=== PATIENT | male | born 1955 | race Caucasian/White ===

== ENCOUNTER 2018-07-14 11:32 | Day surgery (SDC) | payer OTHER, SELFPAY ==
--- NOTE | 2018-07-14 | PATH_ITS ---
[facility] Accession Number: [id number] . 01 Material submitted: . rectum - RECTAL STIPEL . 02 Diagnosis: Rectum, Biopsy: Colorectal mucosa with no diagnostic abnormality. Negative for active or microscopic colitis. Negative for granulomata, dysplasia or malignancy. [facility]/07/15/2018 . 02 Electronically signed: . Masoud Cabral MD, PhD, Pathologist NPI- [id number] . 01 Gross description: . RECTAL STIPEL: Received in formalin are 3 fragment(s) of leslie, soft tissue measuring 0.3 x 0.3 x 0.2 cm to 0.4 x 0.3 x 0.2 cm which is entirely submitted and submitted entirely in 1 cassette(s) /DMC /DM . 02 Pathologist provided ICD-10: Z12.11 . 02 CPT . 031417 Performed at: 01 [facility] [address] [facility], [place], [place] [id number] MD Saud Velez MD Phone: [phone] Performed at: 02 [facility] [address] [place], [place] [id number] MD Tricia Martinez MD Phone: [phone]
[2018-07-14 11:59] VITALS: BP 137/90; PULSE 64; RESP 16; TEMP 36.3; O2SAT 98; BMI 31.2
[2018-07-14] MEDS: SODIUM CHLORIDE 0.9% 1,000 ML 200 ML IV (12:17)
--- NOTE | 2018-07-14 12:47 | PM.HP.1 ---
History of Present Illness Date Patient Seen: 07/14/18 Time Patient Seen: 12:47 Chief complaint: [id number] SCREENING COLONOSCOPY Narrative: 62 yo man presents for screening colonoscopy - last 10yrs ago. hx of colon polyps but told to return in 10yrs. unclear if hyperplastic or not. Feeling well - no intestinal complaints tolerated prep no family hx of colonrectal cancer or IBD Patient History Medical History (Updated 07/14/18 @ 12:49 by Eldon Dodson MD) Obesity (Acute) Surgical History (Updated 07/14/18 @ 12:50 by Eldon Dodson MD) Bariatric surgery status (Acute) History of cholecystectomy (Acute) Social History household members: spouse Family & Social History Social History: household members spouse Meds Home Medications Medication Instructions Recorded Confirmed Type loratadine 10 mg PO DAILY 07/14/18 07/14/18 History naproxen 250 mg PO DAILY 07/14/18 07/14/18 History Allergies Allergy/AdvReac Type Severity Reaction Status Date / Time grass pollen Allergy Intermediate Nasal Verified 07/14/18 11:56 Discharge tree and shrub pollen Allergy Intermediate Nasal Verified 07/14/18 11:56 Discharge Review of Systems Constitutional Constitutional: Denies fever(s) Eyes Eyes: Denies bulging eyes ENT Ears, Nose, Mouth, and Throat: No lip swelling Cardiovascular Cardiovascular: Denies generalize swelling Respiratory Respiratory: Denies stridor Gastrointestinal Gastrointestinal: Denies coffee ground emesis Musculoskeletal Musculoskeletal: Denies loss of height Integumentary/Breasts Skin/Breast: Denies wounds Neurologic Neurologic: Denies abnormal speech and Denies confusion Psychiatric Psychiatric: Denies confusion Endocrine Endocrine: Denies deepening of the voice Hematologic/Lymphatic Hematologic/Lymphatic: Denies lymphadenopathy Allergic/Immunologic Allergic/Immunologic: Denies lip swelling Exam Vital Signs (past 8 hours): - 07/14/18 11:59 Temperature 97.3 F L Pulse Rate 64 Respiratory Rate 16 Blood Pressure 137/90 Pulse Oximetry 98 Oxygen Delivery Method Room Air Const General: cooperative and healthy appearing Orientation: alert HENMT Head: normal to inspection Nose: nares normal Mouth: oral mucosae normal and lip normal Eyes Eyelids: eyelids normal Conjunctivae: conjunctivae normal Sclera: sclerae normal Neck Neck: supple and other (No thyromegally) Chest Chest: other (LCTAB , regular respiratory effort) Cardio Rhythm: regular rhythm Heart Sounds: S1 normal, S2 normal, no gallops, no murmurs and no rubs GI Other: abdomen soft nontender non distended Skin General: no rashes or lesions noted Neuro General: alert and awake Psych Appearance: grossly normal Affect: normal affect Assessment & Plan Assessment & Plan narrative: 62 yo man presents for screening colonoscopy Risks including , perforation, hypoxia, missed lesion all discussed ready to proceed all questions answered
[2018-07-14] MEDS: MIDAZOLAM 5 MG/5 ML VIAL IV (13:30)
[2018-07-14] MEDS: fentaNYL 250 MCG/5 ML INJ IV (13:31)
--- NOTE | 2018-07-14 13:43 | PM.OP.ENDO ---
Operative Date/Time/Diagnoses Date of procedure: 07/14/18 Time of procedure: 13:43 Pre-op diagnosis: Screening colonoscopy Post-op diagnosis: same Procedure & Clinicians Study performed: Screening complete colonoscopy Same procedure as scheduled: Yes Indications: 62-year-old man with history of prior colonoscopy which had questionable polyps presents for screening colonoscopy. Last 10 years ago Surgeon: Eldon Dodson Procedure Notes SCOAP/Timeout: Completed Procedure in detail: Patient was brought to the endoscopy suite. Time-out was completed. He was sedated with fentanyl and midazolam for a total procedure amount of 4 mg midazolam and 125 micro g of fentanyl. A digital rectal exam was performed there are no masses or polyps identified by palpation. The prostate was enlarged but soft. 160 cm colonoscope was advanced through the rectum the sigmoid rectal junction and through the colon until the cecum was reached. The appendiceal orifice was identified as was the ileocecal valve. The scope was then slowly withdrawn inspecting the mucosal wall. No polypoid lesions were identified over scope withdrawal time of 11 minutes. Prep was adequate. The scope was retroflexed at the level of the distal rectum There was a faint stippling pattern noted on the mucosa throughout the colon and rectum including the cecum. As a consequence of route sales representative area of the rectum was biopsies and sent to pathology Scope withdrawal time: 11 Sedation minutes: 29 Findings: other findings (faint stippling of the colonic mucosa) Specimen(s): other (rectal biopsy) Complications: none Impression: 1) enlarged prostate 2) faint stippling pattern of the mucosa wall of the colon and rectum -the route sales representative biopsy pending Recommendations: Colonscopy in 10 years Plan for aftercare: As needed pending biopsy results Follow up: as needed Disposition: PACU
[2018-07-14 13:46] VITALS: BP 99/65; PULSE 56; RESP 18; TEMP 36.2; O2SAT 99
--- NOTE | 2018-07-14 13:49 | P.OP.ENDO_ITS ---
Operative Date/Time/Diagnoses Date of procedure: 07/14/18 Time of procedure: 13:43 Pre-op diagnosis: Screening colonoscopy Post-op diagnosis: same Procedure & Clinicians Study performed: Screening complete colonoscopy Same procedure as scheduled: Yes Indications: 62-year-old man with history of prior colonoscopy which had questionable polyps presents for screening colonoscopy. Last 10 years ago Surgeon: Eldon Dodson Procedure Notes SCOAP/Timeout: Completed Procedure in detail: Patient was brought to the endoscopy suite. Time-out was completed. He was sedated with fentanyl and midazolam for a total procedure amount of 4 mg midazolam and 125 micro g of fentanyl. A digital rectal exam was performed there are no masses or polyps identified by palpation. The prostate was enlarged but soft. 160 cm colonoscope was advanced through the rectum the sigmoid rectal junction and through the colon until the cecum was reached. The appendiceal orifice was identified as was the ileocecal valve. The scope was then slowly withdrawn inspecting the mucosal wall. No polypoid lesions were identified over scope withdrawal time of 11 minutes. Prep was adequate. The scope was retroflexed at the level of the distal rectum There was a faint stippling pattern noted on the mucosa throughout the colon and rectum including the cecum. As a consequence of premium service representative area of the rectum was biopsies and sent to pathology Scope withdrawal time: 11 Sedation minutes: 29 Findings: other findings (faint stippling of the colonic mucosa) Specimen(s): other (rectal biopsy) Complications: none Impression: 1) enlarged prostate 2) faint stippling pattern of the mucosa wall of the colon and rectum -the premium service representative biopsy pending Recommendations: Colonscopy in 10 years Plan for aftercare: As needed pending biopsy results Follow up: as needed Disposition: PACU
[2018-07-14 13:51] VITALS: BP 97/69; PULSE 57; RESP 18; TEMP 36.3; O2SAT 57
[2018-07-14 13:57] VITALS: BP 97/58; PULSE 59; RESP 15; TEMP 36.4; O2SAT 97
[2018-07-14 14:08] VITALS: BP 100/67; PULSE 62; RESP 15; TEMP 36.2; O2SAT 95
== END 2018-07-14 14:15 | disposition home or self-care (01) ==
PROVIDERS: Family Provider Family Medicine; PCP Family Medicine; Visit Provider Surgery
PROC: 0DJD8ZZ Inspection of Lower Intestinal Tract, Via Natural or Artificial Opening Endoscopic (ICD-10-PCS; CPT 45378; principal; 2018-07-14 13:00)
DX: Z86.010 Personal history of colon polyps (principal); E66.9 Obesity, unspecified
CPT/HCPCS: 45380; 99152; 99153; J2250; J3010

== ENCOUNTER → 2019-07-15 12:10 | Outpatient (CLI) | payer MEDICARE, SELFPAY ==
--- NOTE | 2019-07-15 | DI.MRI.S_ITS ---
PROCEDURE: MR ANKLE RT WO CON INDICATIONS: Right ankle pain TECHNIQUE: Noncontrast sagittal T1 spin echo and T2 fast spin echo with fat saturation, axial proton density fast spin echo and T2 fast spin echo with fat saturation, coronal T1 spin echo and T2 fast spin echo with fat saturation through the ankle/hindfoot. COMPARISON: None. FINDINGS: Image quality: Excellent. Bones and joints: Osteophytic changes are noted in the subtalar joint, talonavicular joint and calcaneocuboid joint with joint space narrowing, subchondral sclerosis and cyst formation. Edema is noted in superior portion of calcaneus and mid to posterior portion of the talus adjacent to subtalar joint. No discrete fracture line is seen. Finding likely represents changes secondary to osteoarthritis versus mild contusion.. No hindfoot coalitions. No osteochondral injuries of the talar dome. No pathologic joint effusions. Medial structures: The posterior tibialis tendon and flexor digitorum longus tendon are grossly intact. Moderate fluid distention of the flexor hallucis longus tendon is seen at the level of the distal tibial plafond/talar dome, suggestive of focal tenosynovitis. The posterior tibial neurovascular bundle appears normal within the tarsal tunnel, without extrinsic mass effect. The deep layer (anterior and posterior tibiotalar ligaments) and superficial layer (tibionavicular, tibiospring, and tibiocalcaneal ligaments) of the deltoid ligament appear normal. The spring ligament components (superomedial calcaneonavicular, medioplantar oblique calcaneonavicular, and inferoplantar longitudinal ligaments) are intact. Lateral structures: The anterior talofibular, calcaneofibular, and posterior talofibular ligaments appear thickened and is suggestive of ligament sprain. More superiorly, the anterior and posterior tibiofibular ligaments appear intact, as is the intermalleolar ligament. The tibiofibular syndesmosis is normal in width at 2 mm or less. The peroneus longus and brevis tendons appear thickened with small amount of fluid distending tendon sheaths at the level of lateral malleolus suggestive of tendinosis and low-grade partial-thickness tear. Adjacent bony peroneal tubercle and retrotrochlear prominence are normal in size. The sinus tarsi demonstrates normal fatty signal, without edema, fibrosis, or cyst formation. Visualized sinus tarsi components (cervical ligament, interosseous talocalcaneal ligament, roots of the inferior extensor retinaculum) appear normal. The calcaneonavicular and calcaneocuboid components of the bifurcate ligament appear intact. The dorsal calcaneocuboid ligament appears intact. Anterior structures: The tibialis anterior, extensor hallucis longus, and extensor digitorum longus tendons appear intact. The dorsal talonavicular ligament appears intact. Posterior and plantar structures: Achilles tendon is intact. Medial and lateral bands of the plantar fascia are of normal thickness. No abductor digiti quinti muscle atrophy to suggest Jensen neuropathy. IMPRESSION: 1. Moderate subtalar joint osteoarthritis with significant edema involving superior portion of calcaneus and mid to posterior portion of talus adjacent to subtalar joint. No fracture or dislocation. No suspicious intraosseous lesion. Mild to moderate osteophytic changes also noted in hindfoot joints. 2. Suggestion of tenosynovitis involving the flexor hallucis longus tendon at the level of tibiotalar joint extending to the level of the subtalar joint. 3. Moderate grade tendinosis and partial-thickness tear involving the peroneus tendons at the level of lateral malleolus. 4. Sprain of anterior and posterior talofibular ligaments. No full-thickness ankle ligament rupture. Dictated by: Augustus Gutierrez M.D. on 07/15/2019 at 15:11 Approved by: Augustus Gutierrez M.D. on 07/15/2019 at 15:26
== END ==
PROVIDERS: Family Provider Family Medicine; PCP Family Medicine; Referring Provider Orthopaedic Surgery Foot and Ankle Surgery; Visit Provider Orthopaedic Surgery Foot and Ankle Surgery
DX: M25.571 Pain in right ankle and joints of right foot (principal); M19.071 Primary osteoarthritis, right ankle and foot; S96.811A Strain of other specified muscles and tendons at ankle and foot level, right foot, initial encounter; S93.491A Sprain of other ligament of right ankle, initial encounter
CPT/HCPCS: 73721

== ENCOUNTER → 2019-08-18 13:45 | Outpatient (CLI) | payer MEDICARE, SELFPAY ==
[2019-08-19 20:03] LABS: COVID19 Sendout Not Detected (Not Detect)
== END ==
PROVIDERS: Family Provider Family Medicine; PCP Family Medicine; Visit Provider Physician Assistant
DX: Z01.812 Encounter for preprocedural laboratory examination (principal)
CPT/HCPCS: 87635

== ENCOUNTER 2019-08-20 10:41 | Day surgery (SDC) | payer MEDICARE, SELFPAY ==
[2019-08-16 12:48] VITALS: BMI 31.8
[2019-08-20] VITALS (8 sets, daily range): BP systolic 123–151; BP diastolic 78–89; PULSE 71–84; RESP 16–20; TEMP 36.8–37.3; O2SAT 95–98; BMI 31.8
[2019-08-20] MEDS: LACTATED RINGERS 1,000 ML 42 ML IV (11:45)
--- NOTE | 2019-08-20 12:25 | SUR.PREOP ---
Pt's finger red, swollen and painful. Shown to PACO Hector and Dr. Hutchinson.
--- NOTE | 2019-08-20 12:51 | SUR.OPER ---
Supine on padded OR bed, head on pillow, operative arm secured on padded hand table at <90 degrees abduction, nonoperative arm secured on padded armboard, legs uncrossed, safety belt at thigh, tape over blanket over lower legs.
--- NOTE | 2019-08-20 12:52 | PM.PREOP ---
Pre-operative Note COVID-19 COVID-19 status: Negative Result date/Date tested (Pos, Neg/Pending): 08/18/19 Interval Note History & Physical reviewed/Exam performed by Physician: Yes Changes to H&P: Yes H&P completed within 30 days and has changed as indicated here:: Interval between the patient's preop H&P in the clinic and his presentation to the hospital he has developed a right index finger abscess and cellulitis. He was cleaning gutters over the weekend and obtained a wound over his distal phalanx on the dorsal surface he had swelling and drainage was seen by his PCP was given some Keflex and a shot of Rocephin at home he has continued to have swelling and some redness and cellulitis up almost to his wrist this does improve some with ice packs but is persistent and draining and read today on expected and. Based on the presence of his finger abscess swelling decision has been made to abort the planned subtalar fusion for risk of infection with placing hardware and instead do an irrigation and debridement of the right index finger abscess. Again purulence was able to be expressed from the wound in the preoperative area he does not have any tenderness or signs of infection along his flexor tendons but does have a area of platelets swelling and cellulitis over the dorsum of his finger. The overall digit is swollen compared to the other digits and he has a decreased range of motion. Patient understands and agrees with the plan. A new consent for a finger abscess drainage was completed today. Plan will be to obtain cultures as well as he will get a another dose of IV antibiotics after surgery and discharge prescription for oral antibiotics. If the cultures come back and differently the antibiotics will be changed if he has a worsening presentation he understands that he will need to come to the hospital for IV antibiotics. Patient understands and agrees with this plan he would not like to stay overnight for additional antibiotic doses therefore will give him IV dose before he leaves as well as oral antibiotics per discharged with strict return instructions. We discussed once he recovers from his infection we will reschedule his foot surgery.
[2019-08-20] MEDS: BUPIVACAINE 0.25% W/ EPI 30 ML VIAL INJ (13:29)
[2019-08-20] MEDS: CEFTRIAXONE 2 GM/50 ML FROZ.PIGGY IV (13:45)
--- NOTE | 2019-08-20 13:58 | PM.OP.1 ---
Operative Date/Time/Diagnoses Date of procedure: 08/20/19 Time of procedure: 13:20 Pre-op diagnosis: Abscess finger right index finger Post-op diagnosis: other Procedure & Clinicians Procedure: Irrigation drainage debridement right index finger abscess CPT code 17750--J6 Same procedure as scheduled: Yes Indications: Patient is a 63-year-old male that was previously scheduled for a subtalar arthrodesis however on presentation to the OR on the date of surgery was found to have a acute dorsal right index finger abscess with cellulitis. Patient had an injury while cleaning gutters few days previous he was seen by his PCP yesterday and given IM and oral antibiotics. Did have streaking present up the dorsum of his hand over the wrist. Some prove some with icing but is still significantly present today. Does not have any pain along the flexor tendon surface. Given his acute infection his elective procedure was canceled. He did have the presence of an abscess draining purulence from the dorsum of his finger and cellulitis with streaking was indicated for formal irrigation drainage of the abscess of the right index finger. The risks and benefits of the procedure have been discussed with the patient even opportunity to ask questions. The risks of surgery include but are not limited to infection, need for additional procedures, persistence of pain, damage to nerves and blood vessels, posttraumatic arthritis, DVT, PE, cardiopulmonary complications and . The patient expressed a thorough understanding of the risks and benefits of surgery and has elected to proceed. Consent was signed. Discussed that the patient's elective foot fusion surgery will need to have hardware placed and held need to have the current infection cleared before we proceeding with this. Surgeon: Margret Hutchinson Click Yes if Unassisted: Yes Anesthesia Type: General and Local Operative Notes Findings: Dorsal abscess this finger distal phalanx proximal to the nail fold does not appear to involve was then nail fold or eponychium. Purulence from small abscess cavity is expressed with cellulitis of the entire digit. Was likely a mucous cyst that became infected. There was no tracking of the abscess volarly. This was thoroughly washed out irrigated and packing was placed. Cultures were sent Closure Type: not applicable Specimen(s): other (Cultures, Gram stain right index finger dorsal abscess) Estimated Blood Loss (mL): 2 Blood products transfused: none Tourniquet time (min): 5 Procedure in detail: Patient was seen in the preoperative area he was found to have a right index finger abscess and cellulitis with streaking. History and physical was performed and consent for I and D of the finger was obtained. The patient was then brought back to the operating room by the anesthesia team is positioned supine on the operative table. A nonsterile brachial tourniquet was placed. General anesthetic was administered. The right hand was placed on hand table. Right hand was draped in standard sterile fashion. A formal time-out procedure was performed confirming the patient's site and site of surgery and presence of consent. Antibiotics were held due to known infection we will take cultures. Attention turned to the right index finger longitudinal incision was made over the area of the opening. Gross purulence was drained and cultured. Wound track was excised and further opened up using the tenotomy scissors and hemostats. Did not appear to track volarly at all. Wound was thoroughly irrigated with sterile saline the tourniquet was released hemostasis was achieved and the wound was then packed with iodoform gauze. And a dressing placed with gauze Carlos and Coban. Finger tip past pinked up nicely. Patient was woken from anesthesia and taken to recovery room in good condition. A dose of ceftriaxone was scheduled for the PACU. Complications: none Post-operative Condition: stable Disposition: PACU Plan for aftercare: Patient will be discharged home he has a dressing on his right finger. He will get a dose of antibiotics in the PACU and a prescription for Bactrim for MRSA coverage. He will start taking that tonight take twice a day. If the cultures come back with any different coverage requirements they will be informed otherwise will start warm soapy soaks tomorrow morning followed by packing changes.
--- NOTE | 2019-08-20 14:55 | SUR.PHASEII ---
Pt getting dressed now on his own, gait steady. All dc instructions given to pt and pt verbalizes understanding, home w/written dc instructions as well and rxs and dressing change supplies. Pt VSS, out to private vehicle via wc in stable condition.
== END 2019-08-20 14:57 | disposition home or self-care (01) ==
PROVIDERS: Family Provider Family Medicine; PCP Family Medicine; Referring Provider Orthopaedic Surgery Foot and Ankle Surgery; Visit Provider Orthopaedic Surgery Foot and Ankle Surgery
PROC: (CPT 26011; principal; 2019-08-20 12:45)
DX: L02.511 Cutaneous abscess of right hand (principal); L03.011 Cellulitis of right finger; A49.01 Methicillin susceptible Staphylococcus aureus infection, unspecified site; S61.210A Laceration without foreign body of right index finger without damage to nail, initial encounter; W26.8XXA Contact with other sharp object(s), not elsewhere classified, initial encounter; Y93.H9 Activity, other involving exterior property and land maintenance, building and construction; Y92.9 Unspecified place or not applicable
CPT/HCPCS: 26011; 87070; 87075; 87077; 87147; 87205; J0696; J2704; J3010

== ENCOUNTER → 2019-10-01 09:00 | Outpatient (CLI) | payer MEDICARE, SELFPAY ==
[2019-10-02 09:25] LABS: COVID19 Sendout Not Detected (Not Detect)
== END ==
PROVIDERS: Family Provider Family Medicine; PCP Family Medicine; Visit Provider Physician Assistant
DX: Z11.59 Encounter for screening for other viral diseases (principal)
CPT/HCPCS: 87635

== ENCOUNTER 2019-10-04 09:34 | Day surgery (SDC) | payer MEDICARE, SELFPAY ==
[2019-09-30 14:48] VITALS: BMI 31.8
[2019-10-04] VITALS (8 sets, daily range): BP systolic 93–138; BP diastolic 56–85; PULSE 60–65; RESP 9–18; TEMP 36.2–36.6; O2SAT 96–99; BMI 31.8
--- NOTE | 2019-10-04 | PATH_ITS ---
[facility] Accession Number: [id number] . 01 Material submitted: . bone - RIGHT INDEX FINGER BONE . 01 Clinical history: . OSTEOMYELITIS . 01 Diagnosis: Bone, Index Finger, Biopsy: Trabecular bone with minute foci of osteonecrosis, new bone formation, and chronic inflammation/fibrosis of marrow, consistent with chronic osteomyelitis. Negative for malignancy. MRV 10/06/2019 1612 Local . 01 Comment: The histologic findings require correlation with clinical features, for confirmation. . 01 Electronically signed: . Cristina Pierce MD, Pathologist NPI- [id number] . 01 Gross description: . RIGHT INDEX FINGER BONE: Received in formalin are multiple fragment(s) of leslie, hard bone measuring 0.5 x 0.4 x 0.2 cm in aggregate submitted entirely in 1 cassette(s) /QBJ 10/05/2019 0657 Local . 01 Pathologist provided ICD-10: M86.9 . 01 CPT . 753396, [id number] Performed at: 01 [facility] [address], [place], [place] [id number] MD Saud Velez MD Phone: [phone]
--- NOTE | 2019-10-04 | DI.RAD.S_ITS ---
PROCEDURE: FL GUIDED PICC PLACEMENT INDICATIONS: Osteomyelitis, unspecified COMPARISON: None. FINDINGS: PICC was placed by the intravenous therapy team from the left side. Fluoroscopic spot film demonstrates the tip of PICC projecting to the area of superior aspect of the inferior vena cava. IMPRESSION: Tip of PICC projects overlying of the anterior aspect of the superior vena cava. Dictated by: Nj Luke M.D. on 10/04/2019 at 11:55 Approved by: Nj Luke M.D. on 10/04/2019 at 11:55
[2019-10-04] MEDS: LACTATED RINGERS 1,000 ML 42 ML IV (13:36)
--- NOTE | 2019-10-04 14:38 | PM.PREOP ---
Pre-operative Note COVID-19 COVID-19 status: Negative Interval Note History & Physical reviewed/Exam performed by Physician: Yes Changes to H&P: No
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
--- NOTE | 2019-10-04 15:16 | PM.OP.1 ---
Operative Date/Time/Diagnoses Date of procedure: 10/04/19 Time of procedure: 15:40 Pre-op diagnosis: Right index finger osteomyelitis M86.9, right finger infection L08.9 Post-op diagnosis: same Procedure & Clinicians Procedure: Incision drainage osteomyelitis right index finger CPT code 47126 Same procedure as scheduled: Yes Indications: Patient is a 64-year-old male with a infected right mucinous cyst of his index finger DIP joint progressing on to osteomyelitis. He has failed conservative treatment with oral antibiotics and irrigation debridement. He has been indicated for a debridement and bone biopsy and initiation of IV antibiotics with PICC line. The risks and benefits of the procedure have been discussed with the patient even opportunity to ask questions. The risks of surgery include but are not limited to infection, malunion, nonunion, persistence of pain, damage to nerves and blood vessels, posttraumatic arthritis, DVT, PE, cardiopulmonary complications and . The patient expressed a thorough understanding of the risks and benefits of surgery and has elected to proceed. Consent was signed. Surgeon: Margret Hutchinson Click Yes if Unassisted: Yes Anesthesia Type: General and Local Operative Notes Findings: Swollen right index finger from middle of the middle phalanx distal centered on the PIP joint. The IP joint was opened demonstrated extremely arthritic distal phalanx joint no gross purulence was expressed. Two 0 drill was used to penetrate the dorsal cortex of the middle phalanx and then a curette was used to send for pathology and culture. Additional curette was used to send the distal phalanx as well. No gross purulence was encountered. Severe degenerative changes of the DIP joint were encountered. Closure Type: primary Specimen(s): other (Bone for culture, pathology) Estimated Blood Loss (mL): 2 Blood products transfused: none Tourniquet time (min): 36 Procedure in detail: Patient was seen in the preoperative area the site of surgery was marked and informed consent confirmed. The patient was then brought back to the operating room by the anesthesia team placed supine on the operative table. General anesthetic was administered. The right upper extremity had a nonsterile brachial tourniquet placed. This was well padded. The arms on a hand table. The right upper extremities prepped and draped in the standard sterile fashion. A formal time-out procedure was performed confirming the patient's side and site of surgery. Antibiotics were held for intraoperative cultures and then administered after cultures were obtained. Attention was turned the right upper extremity. [place] exsanguination was completed and tourniquet was raised on the brachium to 250 mm of mercury. Attention was turned to the right index finger. 3 cc of 0.25% Marcaine with epinephrine were used as a digital block. Dorsal H type incision was drawn out over the distal interphalangeal joint. This was opened. The extensor tendon was transected to help exposure and then repaired at the end of the procedure. The DIP joint was opened. This was severely degenerative with only a small amount of articular surface remaining at the distal phalanx. There was no gross purulence expressed. A 2.0 drill was used to penetrate the dorsal cortex of the middle phalanx and a curette was used to obtain bone to send for culture and pathology. Part of the distal phalanx articular surface was absent and the curette was used through this to obtain bone for culture and pathology. Once this was obtained the intraoperative antibiotics were administered. The wound was irrigated with 3 L of saline through cysto tubing. And the tourniquet was released. Hemostasis was achieved. The extensor mechanism was closed with 4 0 PDS suture followed by 4 0 Monocryl and 4 0 and 5 0 nylon in the skin. The skin edges came together well. The tissue pinked up appropriately. A Xeroform and gauze dressing was placed. Aluminum foil splint was placed just across the DIP joint to hold this in extension while allowing PIP motion. At this point the procedure was terminated the patient was woken from anesthesia and taken to the recovery room in good condition. There no immediate complications from this procedure. All counts were correct. Complications: none Post-operative Condition: stable Disposition: PACU Plan for aftercare: Discharge home. Keep dressing clean dry and intact an extension splint on may re-prepped splint with Coban if needed.. Will initiate cefazolin q.8 hours PICC line. Will have weekly labs. Will follow up with Orthopedics as well as [facility]. Follow-up intraop cultures.
--- NOTE | 2019-10-04 15:53 | SUR.OPER ---
Supine on padded OR bed, head on pillow, arms secured on padded arm boards at <90 degrees abduction, legs uncrossed, safety belt at thigh, tape over blanket over lower legs.
[2019-10-04] MEDS: BUPIVACAINE 0.25% W/ EPI 30 ML VIAL INJ (15:57)
[2019-10-04] MEDS: CEFAZOLIN 2 GM/100 ML FROZ.PIGGY IV (16:10)
[2019-10-04 16:24] LABS: Add Manual Diff / Slide Review NO; Basophils Absolute Auto 0 /uL (0-100); Basophils Percent Auto 0.9 % (0-2); Eosinophils Absolute Auto 200 /uL (0-450); Hematocrit 41.1 % (41-53); Hemoglobin 13.9 g/dL (13.5-17.5); Lymphocytes Absolute Auto 1500 /uL (1100-4500); Lymphocytes Percent Auto 33.3 % (25-40); Mean Corpuscular HGB Conc 33.8 % (30-36); Mean Corpuscular Hemoglobin 29.2 PG (26-34); Mean Corpuscular Volume 86.6 fL (80-100); Monocytes Absolute Auto 300 /uL (0-900); Monocytes Percent Auto 6.8 % (3-14); Neutrophils Absolute Auto 2400 /uL (1500-7000); Platelet Count 131 X10^3/uL (150-400); Red Blood Cell Count 4.74 X10^6/uL (4.5-5.9); Red Cell Distribution Width 16.2 % (11.6-14.8); White Blood Cell Count 4.4 X10^3/uL (4.5-11.0)
[2019-10-04 16:27] LABS: Alanine Aminotransferase 26 IU/L (<50); Albumin 4.1 g/dL (3.5-5.0); Albumin Globulin Ratio 1.5 (1.0-2.8); Alkaline Phosphatase 154 U/L (38-126); Aspartate Aminotransferase 35 IU/L (17-59); BUN Creatinine Ratio 20.4 (6-22); Bilirubin Total 0.8 mg/dL (0.2-1.3); Blood Urea Nitrogen 20 mg/dL (9-20); Calcium 9.2 mg/dL (8.4-10.2); Carbon Dioxide 28 mmol/L (22-32); Chloride 105 mmol/L (98-107); Estimated Glomerular Filt Rate > 60.0 mL/min (>60); Globulin 2.7 g/dL (1.7-4.1); Glucose 78 mg/dL (80-110); HEMOLYSIS < 15 (0-50); Potassium 4.2 mmol/L (3.4-5.1); Sodium 137 mmol/L (137-145); Total Protein 6.8 g/dL (6.3-8.2)
[2019-10-04 16:33] LABS: C-Reactive Protein Quant < 0.5 mg/dL (<1.0)
[2019-10-04 16:39] LABS: Erythrocyte Sedimentation Rate 3 MM/HR (0-15)
--- NOTE | 2019-10-04 17:02 | SUR.PHASEI ---
Arrived, soon awake, breathing on own, R hand elevated and ice pack applied. Dr. Hutchinson to bedside talked to pt.
== END 2019-10-04 17:45 | disposition home or self-care (01) ==
LOC: OR 09:36 → AC 09:36
PROVIDERS: Family Provider Family Medicine; PCP Family Medicine; Referring Provider Family Medicine; Visit Provider Orthopaedic Surgery Foot and Ankle Surgery
PROC: (CPT 26034; principal; 2019-10-04 15:15)
DX: M86.641 Other chronic osteomyelitis, right hand (principal); E66.9 Obesity, unspecified; Z45.2 Encounter for adjustment and management of vascular access device
CPT/HCPCS: 26034; 36573; 80053; 85025; 85651; 86140; 87070; 87075; 87205; J0690; J2704; J3010

== ENCOUNTER → 2020-01-26 09:13 | Outpatient (CLI) | payer MEDICARE, SELFPAY ==
[2020-01-26 11:11] LABS: COVID19 -Nasal RAPID Negative (Negative)
== END ==
PROVIDERS: Family Provider Family Medicine; PCP Family Medicine; Visit Provider Physician Assistant
DX: Z01.812 Encounter for preprocedural laboratory examination (principal); Z20.828 Contact with and (suspected) exposure to other viral communicable diseases
CPT/HCPCS: 87635; C9803

== ENCOUNTER 2020-01-28 06:03 | Day surgery (SDC) | payer MEDICARE, SELFPAY ==
[2020-01-27 11:40] VITALS: BMI 31.8
[2020-01-28] VITALS (8 sets, daily range): BP systolic 126–145; BP diastolic 76–91; PULSE 59–67; RESP 12–16; TEMP 36.2–36.7; O2SAT 95–99; BMI 32.5
--- NOTE | 2020-01-28 | DI.RAD.S_ITS ---
PROCEDURE: XR ANKLE RT MIN 3V INDICATIONS: right ank subtalar fusion TECHNIQUE: 3 views of the ankle were acquired. COMPARISON: None. FINDINGS: Bones: Immediate postoperative evaluation shows expected alignment after placement of to cancellous cannulated screws axially positioned with vertical angulation spanning the subtalar joint from posterior inferior calcaneal approach. Soft tissues: No tibiotalar joint effusion. Achilles tendon appears normal. IMPRESSION: Normal alignment established after posterior hindfoot fusion procedure. Dictated by: Brigido Quiles M.D. on 01/28/2020 at 11:47 Approved by: Brigido Quiles M.D. on 01/28/2020 at 11:49
[2020-01-28] MEDS: LACTATED RINGERS 1,000 ML 42 ML IV ×2 (07:04→10:08)
[2020-01-28] MEDS: VANCOMYCIN 1,000 MG/200 ML PIGGYBACK 200 MG IV (07:05)
[2020-01-28] MEDS: ACETAMINOPHEN 325 MG TABLET 975 MG PO (07:09)
[2020-01-28] MEDS: CELECOXIB 200 MG CAPSULE 400 MG PO (07:11)
--- NOTE | 2020-01-28 07:45 | SUR.PREOP ---
Block start time [4435] . Monitoring AND 02 ON STAND-BY, not needed Patient remained stable throughout procedure, no adverse reactions noted. Block end time [5145]. Pt left for OR in stable condition.
[2020-01-28] MEDS: CEFAZOLIN 2 GM/100 ML FROZ.PIGGY IV (08:11)
[2020-01-28] MEDS: BUPIVACAINE 0.25% W/ EPI (PF) 10 ML VIAL 20 ML INJ (08:30)
--- NOTE | 2020-01-28 08:37 | SUR.OPER ---
Lateral on rodriguez bag, head on pillow, gel axillary roll in place, bottom leg bent with gel pad under knee to foot. Upper arm supported by pillows and secured over bottom arm to padded arm board. Safety belt at hip, tape over blanket lower leg.
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
--- NOTE | 2020-01-28 10:23 | PM.PREOP ---
Pre-operative Note COVID-19 COVID-19 status: Negative Interval Note History & Physical reviewed/Exam performed by Physician: Yes Changes to H&P: No H&P completed within 30 days and has changed as indicated here:: Late entry but full H& P performed less than 24 hours ago in office
[2020-01-28] MEDS: OXYCODONE IR 5 MG TABLET PO (10:30)
== END 2020-01-28 11:16 | disposition home or self-care (01) ==
PROVIDERS: Family Provider Family Medicine; PCP Family Medicine; Referring Provider Family Medicine; Visit Provider Orthopaedic Surgery Foot and Ankle Surgery
PROC: (CPT 28725; principal; 2020-01-28 07:45)
PROC: (CPT 27685; 2020-01-28 07:45)
DX: M19.071 Primary osteoarthritis, right ankle and foot (principal); M21.371 Foot drop, right foot; M62.461 Contracture of muscle, right lower leg; S86.311A Strain of muscle(s) and tendon(s) of peroneal muscle group at lower leg level, right leg, initial encounter; S94.21XA Injury of deep peroneal nerve at ankle and foot level, right leg, initial encounter
CPT/HCPCS: 28725; 27685; 20900; 27899; 64450; 73610; 76000; J0690; J1100; J2405; J2704

== ENCOUNTER → 2021-04-02 08:29 | Outpatient (CLI) | payer MEDICARE, SELFPAY ==
[2021-04-02 19:57] LABS: Alanine Aminotransferase 25 IU/L (<50); Albumin 4.4 g/dL (3.5-5.0); Albumin Globulin Ratio 1.5 (1.0-2.8); Alkaline Phosphatase 140 U/L (38-126); Aspartate Aminotransferase 33 IU/L (17-59); BUN Creatinine Ratio 21.4 (6-22); Bilirubin Total 0.8 mg/dL (0.2-1.3); Blood Urea Nitrogen 21 mg/dL (9-20); Calcium 9.5 mg/dL (8.4-10.2); Carbon Dioxide 33 mmol/L (22-32); Chloride 104 mmol/L (98-107); Cholesterol 173 mg/dL (140-199); Estimated Glomerular Filt Rate > 60.0 mL/min (>60); Globulin 2.9 g/dL (1.7-4.1); Glucose 84 mg/dL (80-110); HDL Cholesterol 53 mg/dL (40-60); HEMOLYSIS < 15 (0-50); LDL Cholesterol Calculated 89 mg/dL (<100); Potassium 4.1 mmol/L (3.4-5.1); Sodium 139 mmol/L (137-145); Total Protein 7.3 g/dL (6.3-8.2); Triglycerides 156 mg/dL (35-150)
[2021-04-02 20:13] LABS: Add Manual Diff / Slide Review NO; Basophils Absolute Auto 0 /uL (0-100); Eosinophils Absolute Auto 200 /uL (0-450); Eosinophils Percent Auto 4.6 % (2-4); Hematocrit 45.8 % (41-53); Hemoglobin 15.4 g/dL (13.5-17.5); Lymphocytes Absolute Auto 1200 /uL (1100-4500); Lymphocytes Percent Auto 32.5 % (25-40); Mean Corpuscular HGB Conc 33.5 % (30-36); Mean Corpuscular Volume 89.3 fL (80-100); Monocytes Absolute Auto 300 /uL (0-900); Monocytes Percent Auto 8.5 % (3-14); Neutrophils Absolute Auto 2000 /uL (1500-7000); Neutrophils Percent Auto 53.4 % (50-75); Platelet Count 148 X10^3/uL (150-400); Red Blood Cell Count 5.13 X10^6/uL (4.5-5.9); Red Cell Distribution Width 13.4 % (11.6-14.8); White Blood Cell Count 3.7 X10^3/uL (4.5-11.0)
[2021-04-02 20:46] LABS: Vitamin B12 468 pg/mL (239-931)
== END ==
PROVIDERS: Family Provider Family Medicine; PCP Family Medicine; Visit Provider Physician Assistant
DX: Z98.84 Bariatric surgery status (principal); N40.1 Benign prostatic hyperplasia with lower urinary tract symptoms; R35.1 Nocturia; Z13.6 Encounter for screening for cardiovascular disorders
CPT/HCPCS: 80053; 80061; 82607; 84153; 85025

== ENCOUNTER 2021-05-07 14:25 | Emergency (ER) | payer MEDICARE, SELFPAY ==
[2021-05-07 14:37] VITALS: BP 150/79; PULSE 69; RESP 17; TEMP 36.3; O2SAT 100; BMI 33.9
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
== END 2021-05-07 15:12 | disposition home or self-care (01) ==
PROVIDERS: Emergency Provider Nurse Practitioner Critical Care Medicine; Family Provider Family Medicine; PCP Family Medicine
DX: T16.1XXA Foreign body in right ear, initial encounter (principal); X58.XXXA Exposure to other specified factors, initial encounter
CPT/HCPCS: 69200; 99281; 99282

== ENCOUNTER → 2022-11-20 10:05 | Outpatient (CLI) | payer MEDICARE, SELFPAY | PROVIDERS: Family Provider Family Medicine; PCP Family Medicine; Visit Provider Physician Assistant Medical | DX: B34.9 Viral infection, unspecified (principal); R11.2 Nausea with vomiting, unspecified | CPT/HCPCS: 87086 ==

== ENCOUNTER → 2023-07-21 10:19 | Outpatient (CLI) | payer MEDICARE, SELFPAY ==
[2023-07-21 19:38] LABS: Albumin 4.2 g/dL (3.5-5.0); BUN Creatinine Ratio 16.7 (6-22); Blood Urea Nitrogen 17 mg/dL (9-20); Calcium 9.3 mg/dL (8.4-10.2); Carbon Dioxide 30 mmol/L (22-32); Chloride 105 mmol/L (98-107); Estimated Glomerular Filt Rate > 60 mL/min (>60); Glucose 74 mg/dL (80-110); HEMOLYSIS 24 (0-50); Potassium 4.7 mmol/L (3.4-5.1); Sodium 139 mmol/L (137-145)
[2023-07-21 19:46] LABS: Prealbumin 27.4 mg/dL (17.6-36.0)
[2023-07-21 19:47] LABS: Hemoglobin A1C% w Est Avg Glu 5.3 % (4.0-6.0)
[2023-07-21 19:51] LABS: Hematocrit 44.7 % (41-53); Hemoglobin 14.2 g/dL (13.5-17.5); Mean Corpuscular HGB Conc 31.8 % (30-36); Mean Corpuscular Hemoglobin 31.7 PG (26-34); Mean Corpuscular Volume 99.5 fL (80-100); Platelet Count 189 X10^3/uL (150-400); Red Cell Distribution Width 21.2 % (11.6-14.8)
[2023-07-21 19:53] LABS: Add Manual Diff / Slide Review YES
[2023-07-21 20:04] LABS: Vitamin D 25 Hydroxy (D3) 45.4 ng/mL (30.0-100.0)
[2023-07-21 20:33] LABS: Neutrophils Absolute Manual 1200 /uL (3000-5900); Total Cells Counted 100
[2023-07-21 20:34] LABS: Anisocytosis 2+
== END ==
PROVIDERS: Family Provider Family Medicine; PCP Family Medicine; Visit Provider Orthopaedic Surgery Adult Reconstructive Orthopaedic Surgery
DX: Z01.812 Encounter for preprocedural laboratory examination (principal); R73.9 Hyperglycemia, unspecified; E55.9 Vitamin D deficiency, unspecified; R77.0 Abnormality of albumin
CPT/HCPCS: 80048; 82040; 82306; 83036; 84134; 85007; 85025

== ENCOUNTER → 2023-08-11 09:03 | Outpatient (CLI) | payer MEDICARE, SELFPAY ==
[2023-08-11 19:38] LABS: Cholesterol 199 mg/dL (140-199); Glucose 87 mg/dL (80-110); HDL Cholesterol 67 mg/dL (40-60); LDL Cholesterol Calculated 99 mg/dL (<100); Triglycerides 165 mg/dL (35-150)
[2023-08-11 20:12] LABS: Prostate Specific Antigen 1.89 ng/mL (0.10-4.00)
[2023-08-11 20:28] LABS: Hep C Virus Ab w/Reflex Quant NEGATIVE s/c (NEGATIVE)
== END ==
PROVIDERS: Family Provider Family Medicine; PCP Family Medicine; Visit Provider Family Medicine
DX: Z00.00 Encounter for general adult medical examination without abnormal findings (principal); Z13.6 Encounter for screening for cardiovascular disorders; Z12.11 Encounter for screening for malignant neoplasm of colon; Z13.1 Encounter for screening for diabetes mellitus; Z11.59 Encounter for screening for other viral diseases; Z12.5 Encounter for screening for malignant neoplasm of prostate; Z71.85 Encounter for immunization safety counseling; Z13.220 Encounter for screening for lipoid disorders
CPT/HCPCS: 80061; 82947; 84153; 86803

== ENCOUNTER → 2023-11-05 14:00 | Outpatient (CLI) | payer MEDICARE, SELFPAY ==
[2023-11-05 20:31] LABS: Albumin 4.3 g/dL (3.5-5.0); BUN Creatinine Ratio 18.4 (6-22); Blood Urea Nitrogen 18 mg/dL (9-20); Calcium 9.7 mg/dL (8.4-10.2); Carbon Dioxide 26 mmol/L (22-32); Chloride 102 mmol/L (98-107); Estimated Glomerular Filt Rate > 60 mL/min (>60); Glucose 94 mg/dL (80-110); HEMOLYSIS < 15 (0-50); Potassium 4.3 mmol/L (3.4-5.1); Sodium 135 mmol/L (137-145)
[2023-11-05 20:32] LABS: Add Manual Diff / Slide Review NO; Basophils Absolute Auto 0 /uL (0-100); Basophils Percent Auto 0.7 % (0-2); Eosinophils Absolute Auto 200 /uL (0-450); Eosinophils Percent Auto 3.4 % (2-4); Hematocrit 44.2 % (41-53); Hemoglobin 15.2 g/dL (13.5-17.5); Lymphocytes Absolute Auto 1000 /uL (1100-4500); Lymphocytes Percent Auto 18.8 % (25-40); Mean Corpuscular HGB Conc 34.3 % (30-36); Mean Corpuscular Volume 90.4 fL (80-100); Monocytes Absolute Auto 500 /uL (0-900); Monocytes Percent Auto 8.7 % (3-14); Neutrophils Absolute Auto 3700 /uL (1500-7000); Neutrophils Percent Auto 68.4 % (50-75); Platelet Count 196 X10^3/uL (150-400); Red Blood Cell Count 4.88 X10^6/uL (4.5-5.9); Red Cell Distribution Width 13.4 % (11.6-14.8); White Blood Cell Count 5.4 X10^3/uL (4.5-11.0)
[2023-11-05 20:39] LABS: Prealbumin 25.4 mg/dL (17.6-36.0)
[2023-11-05 20:52] LABS: Vitamin D 25 Hydroxy (D3) 42.7 ng/mL (30.0-100.0)
== END ==
PROVIDERS: Family Provider Family Medicine; PCP Family Medicine; Visit Provider Orthopaedic Surgery Adult Reconstructive Orthopaedic Surgery
DX: Z01.812 Encounter for preprocedural laboratory examination (principal); R77.0 Abnormality of albumin; E55.9 Vitamin D deficiency, unspecified; R73.9 Hyperglycemia, unspecified; Z01.810 Encounter for preprocedural cardiovascular examination
CPT/HCPCS: 80048; 82040; 82306; 83036; 84134; 85025

== ENCOUNTER 2024-02-06 18:29 | Emergency (ER) | payer MEDICARE, SELFPAY ==
[2024-02-06 18:48] VITALS: BP 174/86; PULSE 66; RESP 16; TEMP 36.5; O2SAT 97; BMI 31.8
--- NOTE | 2024-02-06 20:42 | PC.NURSE ---
Patient has been having nerve twinges for 2 months. Recently the twinges have become severe enough to cause falls and the pt and are concerned. He has an appt with his PCP on the Feb and was told by his office to come to the ER since his nerve pain is becoming more frequent and severe to him. He has hx of bilateral TKA and numbness in right leg that dulls the twinges but the left foot and calf twinges are severe. he denies loss of bowel and bladder function.
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
[2024-02-06] MEDS: predniSONE 20 MG TABLET PO (21:17)
[2024-02-06 21:24] VITALS: BP 154/99; PULSE 71; RESP 14; O2SAT 97
== END 2024-02-06 21:25 | disposition home or self-care (01) ==
PROVIDERS: Emergency Provider Emergency Medicine; Family Provider Family Medicine; PCP Family Medicine
DX: M54.16 Radiculopathy, lumbar region (principal)
CPT/HCPCS: 99283

== ENCOUNTER → 2024-02-25 14:42 | Outpatient (CLI) | payer OTHER, SELFPAY ==
--- NOTE | 2024-02-25 14:43 | DI.MRI.S_ITS ---
PROCEDURE: MR LUMBAR SPINE WO CON INDICATIONS: lumbar stenosis TECHNIQUE: Noncontrast sagittal T1 spin echo and T2 fast echo, sagittal STIR, and T2 fast spin echo through the lumbar spine. In cases with scoliosis, additional coronal T2 fast spin echo may be performed. COMPARISON: [facility] Outside [facility], MR, MR LUMBAR SPINE WITHOUT CONTRAST, 01/09/2019, 14:37. [facility] ([place]), CR, XR LUMBAR SPINE 2-3V, 08/10/2020, 14:47. FINDINGS: Image quality: This examination is limited by involuntary motion artifact. Alignment and Curvature: S-shaped scoliotic curvature is seen. Mild grade 1 anterolisthesis can be seen at the L5-S1 level. No definite associated pars defects can be seen. Bone Marrow: Marrow is of normal overall signal. No acute vertebral body compression fractures. Spinal Cord: Conus medullaris terminates at the L1 level. Visualized cord demonstrates normal signal and size. Paraspinous Soft Tissues: No paravertebral masses. T12-L1: Moderate loss of disc height is seen. Loss of disc signal is seen. Moderate disc bulge is seen, with a central disc protrusion. Mild to moderate facet hypertrophy is seen. Associated hypertrophy of the ligamentum flavum can be seen. Moderate bilateral neural foraminal narrowing can be seen, left worse than right. Moderate central canal narrowing is seen. These imaging findings have progressed compared to the prior study. L1-L2: Moderate loss of disc height is seen. Loss of disc signal is seen. Moderate disc bulge is seen, which is slightly eccentric to the left. Mild facet joint hypertrophy is seen. Mild to moderate bilateral neural foraminal narrowing is seen. Moderate central canal narrowing is seen. These imaging findings have progressed compared to the prior study. L2-L3: Moderate loss of disc height is seen. Loss of disc signal is seen. Moderate disc bulge is seen, with a mild central disc protrusion. Mild facet joint hypertrophy is seen. There is moderate right-sided and [id number] left-sided neural foraminal narrowing. Mild to moderate central canal narrowing is seen. Compared to the prior images, these imaging findings are slightly progressed compared to 2019. L3-L4: At least moderate loss of disc height and disc signal can be seen. Moderate disc bulge is seen, which is eccentric to the right. There is a central disc osteophyte protrusion. Mild facet joint hypertrophy is seen. There is moderate left-sided and at least moderate right-sided neural foraminal narrowing. Moderate central canal narrowing is seen. These imaging findings have progressed compared to the prior study. L4-L5: At least moderate loss of disc height and disc signal can be seen. Reactive marrow endplate changes are seen, which are hyperintense on T1-weighted and T2-weighted imaging and most consistent with fatty metaplasia (Modic type II changes). Moderate disc bulge is seen, with a central disc osteophyte protrusion. Moderate facet joint hypertrophy is seen. There is at least moderate right-sided and moderate to severe left-sided neural foraminal narrowing. There is a degree of compression seen upon the exiting left L4 nerve root. Moderate central canal narrowing is seen. When comparison is made with the prior images, these findings are similar. L5-S1: Moderate loss of disc height is seen. Loss of disc signal is seen. Moderate disc bulge is seen, with a central disc protrusion. At least moderate facet hypertrophy is seen at this level. There is at least moderate bilateral neural foraminal narrowing seen. There is a degree of compression seen upon the exiting nerve roots. Mild central canal narrowing is seen. These degenerative changes are mildly progressed compared to the prior. IMPRESSION: Multiple levels of significant lumbar spine degenerative change can be seen, which are overall worst inferiorly. The degenerative changes are progressed compared to 2019. Dictated by: Nj Luke M.D. on 02/25/2024 at 15:25 Approved by: Nj Luke M.D. on 02/25/2024 at 15:31
== END ==
LOC: MRI 14:43
PROVIDERS: PCP Family Medicine; Referring Provider Family Medicine; Visit Provider Family Medicine
DX: M51.16 Intervertebral disc disorders with radiculopathy, lumbar region (principal); M51.17 Intervertebral disc disorders with radiculopathy, lumbosacral region; M48.061 Spinal stenosis, lumbar region without neurogenic claudication; M48.07 Spinal stenosis, lumbosacral region; M47.26 Other spondylosis with radiculopathy, lumbar region; M47.27 Other spondylosis with radiculopathy, lumbosacral region; Z87.39 Personal history of other diseases of the musculoskeletal system and connective tissue
CPT/HCPCS: 72148

== ENCOUNTER → 2024-07-08 09:54 | Outpatient (CLI) | payer OTHER, SELFPAY ==
[2024-07-08 19:53] LABS: Cholesterol 203 mg/dL (140-199); Glucose 79 mg/dL (70-99); HDL Cholesterol 51 mg/dL (40-60); LDL Cholesterol Calculated 115 mg/dL (<100); Triglycerides 184 mg/dL (35-150)
[2024-07-08 20:24] LABS: Prostate Specific Antigen Scrn 1.04 ng/mL (0.1-4.0)
[2024-07-08 20:45] LABS: Hep C Virus Ab w/Reflex Quant NEGATIVE s/c (NEGATIVE)
== END ==
PROVIDERS: PCP Family Medicine; Visit Provider Family Medicine
DX: Z00.00 Encounter for general adult medical examination without abnormal findings (principal); Z13.1 Encounter for screening for diabetes mellitus; Z12.5 Encounter for screening for malignant neoplasm of prostate; Z13.6 Encounter for screening for cardiovascular disorders; Z12.11 Encounter for screening for malignant neoplasm of colon; Z11.59 Encounter for screening for other viral diseases; Z71.85 Encounter for immunization safety counseling
CPT/HCPCS: 80061; 82947; 86803; G0103